=== PATIENT | female | born 1990 | race Caucasian/White ===

== ENCOUNTER 2017-10-06 06:19 | Emergency (ER) | payer BC, OTHER ==
[2017-10-06 06:56] VITALS: BMI 26.5
[2017-10-06] MEDS ORDERED: IBUPROFEN 400 MG TABLET (FP) PO ONE (07:55)
[2017-10-06] MEDS ORDERED: ACETAMINOPHEN 325 MG TABLET (FP) ONE (07:56)
[2017-10-06] MEDS ORDERED: ACETAMINOPHEN 325 MG TABLET (FP) PO ONE (08:04)
--- NOTE | 2017-10-06 08:06 | PDOC ---
History of Present Illness - General Chief Complaint: Cold Symptoms Stated Complaint: FEVER Time Seen by Provider: 10/06/17 07:27 History Source: Patient - History of Present Illness Timing/Duration: reports: yesterday Associated Symptoms: reports: fever/chills, muscle aches, nasal congestion. denies: chest pain/soreness, cough, dizziness, earache, facial pain, headache, shortness of breath, sinus infection, sore throat, wheezing Past History - Past Medical History Allergies/Adverse Reactions: Allergies Allergy/AdvReac Type Severity Reaction Status Date / Time divalproex sodium Allergy Verified 10/06/17 06:50 [From Depakote] lamotrigine [From Lamictal] Allergy Verified 10/06/17 06:50 Home Medications: Ambulatory Orders Ibuprofen [Advil -] 600 mg PO QID 10/06/17 Levetiracetam [Keppra -] 1,500 mg PO BID 10/06/17 Oseltamivir Phosphate [Tamiflu] 75 mg PO BID #10 capsule 10/06/17 Topiramate [Topamax] 25 mg PO DAILY 10/06/17 COPD: No Seizures: Yes - Suicide/Smoking/Psychosocial Hx Smoking History: Never smoked Review of Systems - Review of Systems Constitutional: Yes: Fever, Malaise HEENTM: No: Ear Pain, Throat Pain Respiratory: No: Cough, Shortness of Breath, Wheezing ABD/GI: No: Vomiting *Physical Exam - Vital Signs Last Vital Signs Temp Pulse Resp BP Pulse Ox 101.5 F H 116 H 22 116/60 98 10/06/17 06:51 10/06/17 06:51 10/06/17 06:51 10/06/17 06:51 10/06/17 06:51 - Physical Exam General Appearance: Yes: Appropriately Dressed. No: Apparent Distress HEENT: positive: Normal ENT Inspection, Normal Voice. negative: Scleral Icterus (R), Scleral Icterus (L) Neck: positive: Supple. negative: Lymphadenopathy (R), Lymphadenopathy (L) Respiratory/Chest: positive: Lungs Clear, Normal Breath Sounds. negative: Respiratory Distress Cardiovascular: positive: S1, S2, Tachycardia Gastrointestinal/Abdominal: positive: Soft. negative: Tender Integumentary: positive: Dry, Warm Neurologic: positive: Fully Oriented, Alert, Normal Mood/Affect Medical Decision Making - Medical Decision Making 10/06/17 08:04 27-year-old female, history of epilepsy on meds, here with generalized body aches with malaise and fever for 102 since last night. Has since taken Advil. Denies headache, dizziness, altered mental status, neck stiffness, cough, shortness of breath, nausea, vomiting, diarrhea or rash. 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 Vitals improved. Dc w/ tamiflu *DC/Admit/Observation/Transfer Diagnosis at time of Disposition: Influenza - Discharge Dispostion Disposition: HOME Condition at time of disposition: Improved - Prescriptions Prescriptions: Oseltamivir Phosphate [Tamiflu] 75 mg PO BID #10 capsule - Referrals Referrals: Andrew Dos Santos MD [Primary Care Provider] - - Patient Instructions Printed Discharge Instructions: Influenza Additional Instructions: You have the flu. Take Tamiflu as directed and get rest and drink plenty of fluids. Return to ER for worsening of symptoms - Post Discharge Activity Forms/Work/School Notes: Back to Work
[2017-10-06 09:05] VITALS: BP 107/74; PULSE 79; TEMP 98.6
== END 2017-10-06 09:05 | disposition home or self-care (01) ==
LOC: JER 06:19
DX: J09.X2 Influenza due to identified novel influenza A virus with other respiratory manifestations (principal); G40.909 Epilepsy, unspecified, not intractable, without status epilepticus
CPT/HCPCS: 87804; 99282-25